=== PATIENT | female | born 1960 | race Caucasian/White ===

== ENCOUNTER 2021-01-19 13:52 | Outpatient (CLI) | payer OTHER, SELFPAY ==
--- NOTE | 2021-01-19 14:47 | ECG_ITS ---
Measurements Intervals Bell Rate: 73 P: 56 HI: 153 QRS: 30 QRSD: 105 T: 30 QT: 361 QTc: 400 Interpretive Statements SINUS RHYTHM MINIMAL Q WAVES- HIGH LATERAL LEADS BASELINE ARTIFACT- I, II, III, AVR, AVL BORDERLINE ECG Electronically Signed On 01-19-2021 15:14:07 CDT by Chapincito Mclaughlin D.O.
[2021-01-19 15:27] LABS: Basophils Absolute Auto 0.1 K/mm3 (0.0-0.1); Basophils Percent Auto 1.1 % (0.2-1.2); Eosinophils Absolute Auto 0.6 K/mm3 (0-0.3); Eosinophils Percent Auto 10.7 % (0-4.4); Hematocrit 38.5 % (37.0-47.0); Hemoglobin 12.3 g/dL (12.0-15.0); Immature Granulocyte Absolute 0.01 K/mm3 (0.00-0.031); Immature Granulocyte Percent A 0.2 % (0-0.5); Lymphocytes Absolute Auto 1.73 K/mm3 (0.9-3.2); Lymphocytes Percent Auto 30.8 % (18.3-44.2); Mean Corpuscular HGB Conc 31.9 g/dl (32-36); Mean Corpuscular Hemoglobin 29.8 pg (26-34); Mean Corpuscular Volume 93.2 fl (80-100); Mean Platelet Volume 9.4 fl (7.4-10.4); Monocytes Absolute Auto 0.5 K/mm3 (0.1-0.6); Monocytes Percent Auto 8.5 % (2.6-8.5); Neutrophils Absolute Auto 2.7 K/mm3 (1.3-6.7); Neutrophils Percent Auto 48.7 % (45.5-73.1); Platelet Count Result 322 k/mm3 (150-375); Red Blood Count 4.13 M/mm3 (4.2-5.4); Red Cell Distribution Width 13.3 % (11.5-14.5); White Blood Count 5.6 K/mm3 (4.5-10.0)
[2021-01-19 15:36] LABS: INR 0.8; Prothrombin Time 11.1 Seconds (11.1-14.7)
[2021-01-19 15:37] LABS: Partial Thromboplastin Time 27.9 SECONDS (22.3-36.8)
[2021-01-19 15:42] LABS: Alanine Aminotransferase 26 U/L (4-35); Albumin Level 4.2 g/dL (3.5-5.1); Alkaline Phosphatase 102 U/L (38-126); Anion Gap 9 mmol/L (8-16); Aspartate Amino Transferase 36 U/L (14-36); Bilirubin,Total 0.5 mg/dL (0.2-1.3); Blood Urea Nitrogen 18 mg/dL (7-17); Calcium 9.8 mg/dL (8.4-10.2); Carbon Dioxide 28 mmol/L (22-30); Chloride 100 mmol/L (98-107); Estimated Glomerular Filt Rate > 60; Glucose 92 mg/dL (65-110); Potassium 3.7 mmol/L (3.4-5.0); Sodium 137 mmol/L (137-145)
== END 2021-01-19 13:53 | disposition home or self-care (01) ==
LOC: ANHSURGERY 13:59
PROVIDERS: PCP Family Medicine; Visit Provider Urology
DX: N81.4 Uterovaginal prolapse, unspecified (principal); Z01.818 Encounter for other preprocedural examination
CPT/HCPCS: 36415; 80053; 85025; 85610; 85730; 86850; 86900; 86901; 87086; 93005

== ENCOUNTER 2021-01-30 00:54 | Day surgery (SDC) | payer OTHER, SELFPAY ==
[2021-01-19 14:05] VITALS: BMI 38.0
[2021-01-19 14:28] VITALS: BP 124/74; PULSE 81; RESP 16; TEMP 37.2; O2SAT 97
--- NOTE | 2021-01-28 07:57 | PM.IMHP ---
H&P: HPI History of Present Illness Date/Time: 01/28/21 07:57 61-year-old 3 para 3 admitted for robotic supracervical hysterectomy and bilateral salpingo-oophorectomy secondary to pelvic prolapse. She notes a complete prolapse of her pelvis. Risks and benefits reviewed including but not exclusive of , aspiration pneumonia, bleeding, transfusion, perforation injury to bowel, bladder, ureters, or other internal organs with need for open laparotomy. She received the [employer] handout entitled hysterectomy as well as the de Nathaniel handout. She had all questions answered and asked to proceed Chief Complaint: uterine prolapse Review of Systems Review of Systems: All systems reviewed & are unremarkable except as noted in HPI and below PMFSH Social History Social History Smoking packs per day: 1 Smoking cigarettes per day: 20.0 Years smoked: 4 Smoking pack-years: 4.00 Smoking status: Former smoker Tobacco type: cigarettes Smoking end date: 07/01/77 Spiritual care concerns: No Meds Home Medications and Allergies Home Medications Medication Instructions Recorded Confirmed Type cetirizine 10 mg PO DAILY 01/19/21 01/19/21 History lansoprazole 15 mg PO DAILY 01/19/21 01/19/21 History multivit with min-folic acid 2 tablet PO DAILY 01/19/21 01/19/21 History [Adult Multivitamin Gummies] nitrofurantoin monohyd/m-cryst 100 mg PO BID 01/19/21 01/19/21 History Allergies Allergy/AdvReac Type Severity Reaction Status Date / Time Penicillins AdvReac Rash Verified 01/19/21 14:07 Sulfa (Sulfonamide AdvReac Rash Verified 01/19/21 14:06 Antibiotics) Exam Const: General: no acute distress Eyes: General: appearance normal, both eyes and all related structures Neck: Neck: supple and no JVD Thyroid: thyroid normal Resp: Effort & Inspection: normal respiratory effort Auscultation: clear to auscultation bilaterally Cardio: Rate: regular rate Rhythm: regular rhythm GI: Inspection: non-distended GI Palp: Yes Soft to palpation, No Tenderness to palpation present (GI) and No Guarding due to palpation present (GI) Auscultation: normal bowel sounds : External Female Exam: normal external appearance ( Complete prolapse noted.) and Abnormal introitus Bimanual exam- vagina & uterus: uterine size normal Bimanual Exam- Adnexa, other: normal adnexae Skin: General skin exam: no rashes or lesions noted Extrem: General: normal to inspection and no edema Psych: Mental Status: mental status grossly normal Affect: normal affect Assessment and Plan Additional Plan impression: Pelvic prolapse Plan: Robotic supracervical hysterectomy and bilateral salpingo-oophorectomy
[2021-01-30] VITALS (7 sets, daily range): BP systolic 113–121; BP diastolic 65–79; PULSE 55–82; RESP 12–18; TEMP 35.7–37.3; O2SAT 99–100
--- NOTE | 2021-01-30 07:01 | WPDHPUPDATE1 ---
History and Physical Update Update Date/Time: 01/30/21 07:01 History and Physical has been reviewed, including an updated exam of the patient. There are NO changes in the patient's condition. Risks, benefits, and alternatives have been discussed and questions answered. Patient agrees to proceed with procedure.
--- NOTE | 2021-01-30 09:32 | WPDANESEPPF ---
Anes - Initial Pre Proc Eval Procedure: Operation Date: 01/30/21 11:30 Proposed Procedures p Robotic Sacrocolpopexy - Karthikeyan Dow MD s Trans Obturator Taping Urethral Sling - Karthikeyan Dow MD s Robotic Assisted Supracervical Hysterectomy With Bilateral Salpingo-Oophorectomy - Onel Dickerson MD Date/Time: 01/30/21 09:32 Surgeon: Karthikeyan Dow MD Pre Op Diagnosis: uterovaginal prolapse Patient Data Age: 61 Gender: F Height: 1.63 m Weight: 100.4 kg Last Vital Signs Temp 37.2 C 01/19/21 14:28 Pulse 81 01/19/21 14:28 Resp 16 01/19/21 14:28 BP 124/74 01/19/21 14:28 Pulse Ox 97 01/19/21 14:28 Allergies Allergy/AdvReac Type Severity Reaction Status Date / Time Penicillins Allergy Rash Verified 01/30/21 08:30 Sulfa (Sulfonamide Allergy Rash Verified 01/30/21 08:30 Antibiotics) Home Medications Medication Instructions Recorded Confirmed Type cetirizine 10 mg PO DAILY 01/19/21 01/19/21 History lansoprazole 15 mg PO DAILY 01/19/21 01/19/21 History multivit with min-folic acid 2 tablet PO DAILY 01/19/21 01/19/21 History [Adult Multivitamin Gummies] nitrofurantoin monohyd/m-cryst 100 mg PO BID 01/19/21 01/19/21 History Patient hx anesthesia problems: none Family hx anesthesia problems: none [facility] Past Medical History Medical History (Updated 01/30/21 @ 09:33 by Alvaro Giles MD) Chronic GERD Obesity Social History Social History Smoking packs per day: 1 Smoking cigarettes per day: 20.0 Years smoked: 4 Smoking pack-years: 4.00 Smoking status: Former smoker Tobacco type: cigarettes Smoking end date: 07/01/77 Living arrangements: with family Spiritual care concerns: No Anes - Eval Final PreProcedure Day of Procedure 01/30/21 09:32 Patient weight: obese Heart: regular rate and rhythm Lungs: clear to auscultation and normal air movement Airway: Mallampati scale class II Neurological: alert and oriented Last oral intake: >/= 8 hours ASA classification: II Emergent: no Anesthetic plan: proceed Anesthesia type and monitoring: general ETT Informed Consent: The patient's anesthetic plan and its attendant risks and benefits were discussed with the patient/family/POA. Questions were solicited and answers provided to the satisfaction of the patient/family/POA.
[2021-01-30] MEDS: LACTATED RINGERS 1,000 ML 30 ML IV CONT ×2 (10:00→15:04)
[2021-01-30] MEDS: KETOROLAC 15 MG/ML VIAL (*BKC) IV PUSH ×2 (10:06→21:15)
[2021-01-30] MEDS: ACETAMINOPHEN 500 MG TABLET 1000 MG PO (10:07)
--- NOTE | 2021-01-30 10:26 | PM.IMHP ---
H&P: HPI History of Present Illness Date/Time: 01/30/21 10:26 This is a 61-year-old female with stage IV uterine prolapse. She has no stress incontinence by history or by urodynamics. Chief Complaint: Uterine prolapse Review of Systems Review of Systems: All systems reviewed & are unremarkable except as noted in HPI and below PMFSH Past Medical History Medical History Chronic GERD Obesity Social History Social History Smoking packs per day: 1 Smoking cigarettes per day: 20.0 Years smoked: 4 Smoking pack-years: 4.00 Smoking status: Former smoker Tobacco type: cigarettes Smoking end date: 07/01/77 Living arrangements: with family Spiritual care concerns: No Meds Home Medications and Allergies Home Medications Medication Instructions Recorded Confirmed Type cetirizine 10 mg PO DAILY 01/19/21 01/19/21 History lansoprazole 15 mg PO DAILY 01/19/21 01/19/21 History multivit with min-folic acid 2 tablet PO DAILY 01/19/21 01/19/21 History [Adult Multivitamin Gummies] nitrofurantoin monohyd/m-cryst 100 mg PO BID 01/19/21 01/19/21 History Allergies Allergy/AdvReac Type Severity Reaction Status Date / Time Penicillins Allergy Rash Verified 01/30/21 08:30 Sulfa (Sulfonamide Allergy Rash Verified 01/30/21 08:30 Antibiotics) Exam Const: General: cooperative, healthy appearing and alert HENMT: Head: normal to inspection Eyes: General: appearance normal, both eyes and all related structures Resp: Effort & Inspection: normal respiratory effort, able to speak in complete sentences and no cough GI: Inspection: normal to inspection : External Female Exam: Abnormal introitus Bimanual Exam- Adnexa, other: No apex supported and vaginal apex descent ( Plus eight) Back/Spine/Pelvis: Back: no CVA tenderness Skin: General skin exam: normal color and no rashes or lesions noted Neuro: General: patient oriented x3 Assessment and Plan Assessment and plan (1) Uterine prolapse: Code(s): N81.4 - Uterovaginal prolapse, unspecified Status: Acute Assessment and Plan: robotic sacral colpopexy. She understands her prolapse is quite significant. I can only elevate the apex to the sacral promontory. She may have residual prolapse. She has no stress incontinence by history or no urodynamics. We discussed doing a concomitant sling for possible occult stress incontinence. She declines. (2) Female perineal laxity: Code(s): N81.89 - Other female genital prolapse Status: Acute Assessment and Plan: perineal repair
--- NOTE | 2021-01-30 10:29 | WPDHPUPDATE1 ---
History and Physical Update Update Date/Time: 01/30/21 10:29 History and Physical has been reviewed, including an updated exam of the patient. There are NO changes in the patient's condition. Risks, benefits, and alternatives have been discussed and questions answered. Patient agrees to proceed with procedure.
[2021-01-30] MEDS: ceFAZolin 2 GM/D5W 50 ML 2 GM/50 ML BAG IVPB (11:05)
[2021-01-30] MEDS: BUPIVACAINE/EPINEPHRINE 0.25% 10 ML VIAL 20 ML INFILTRATE (11:36)
--- NOTE | 2021-01-30 12:22 | P.OP_ITS ---
Procedure Note - Detailed Date of Procedure 01/30/21 Pre-op Diagnosis uterovaginal prolapse Post-op Diagnosis same Procedure Performed Robotic supracervical hysterectomy bilateral salpingo-oophorectomy Surgeon Onel Dickerson MD Anesthesia general Indications this is a patient with a complete uterine prolapse Findings complete uterine prolapse Description of Procedure the patient was prepped draped in the normal sterile fashion placed in the dorsal lithotomy position. Under excellent general endotracheal anesthesia weighted speculum was placed in posterior fornix vagina the complete prolapse was seen and the uterus was grasped with at the cervix with a single-tooth tenaculum and a Carmen's cannula inserted in the uterus pushed back into the vagina. A [address] [place] catheter was placed[address] Dow proceeded to dock the robot. Please see his operative report for full details The left round ligament was then grasped, burned, cut. Anteriorly a bladder flap was formed by sharply dissecting across the peritoneum and dissect cutting the bladder and pushing it caudally to the opposite round ligament was clamped, burned, cut. Orientation was difficult due to the complete nature of the prolapse. The left infundibulopelvic structure was skeletonized to remove the left ovary and tube. This was clamped, burned, cut and brought to the level of the previously cut round ligament. In like fashion removing the right ovary and tube the infundibulopelvic structure was skeletonized, clamped, burned, cut. This was brought to the level of previously cut round ligament remnant. Next the cardinal broad ligaments on the left were serially skeletonized clamped burned and cut down the lateral edge of the uterus and to the uterine vessels could be seen on left. These were individually clamped, burned, cut. In like fashion the cardinal and broad ligaments were skeletonized on the right these were clamped, burned, cut and brought down to the level of vessels on the right. These vessels were individually clamped, burned, cut. A supracervical his incision was made. And the uterus up placed in an Endo-Catch. A small vaginal laceration was seen and this was made known to Dr. Dow 2 stated he would repair that during the was stable sacral colpopexy. Blood loss to this point was 5cc. All sponge, needle, instruments correct. Dr. Dow proceeded with the sacral colpopexy from that point Estimated Blood Loss 5 Drains No Packing No Pathology yes Complications No immediate complications Condition stable Disposition no change
[2021-01-30] MEDS: metroNIDAZOLE 500 MG/ISO 100ML 500 MG/100 ML BAG 100 MG IVPB ×2 (12:48→21:15)
--- NOTE | 2021-01-30 15:03 | W.PM.PROC2 ---
Procedure Note - Detailed Date of Procedure 01/30/21 Pre-op Diagnosis uterovaginal prolapse Post-op Diagnosis same Procedure Performed robotic assisted laparoscopic sacral colpopexy perineal repair /perineoplasty cystoscopy Surgeon Karthikeyan Dow MD Anesthesia general Indications this is a woman with uterine prolapse and female perineal laxity. They present for surgery. They understand risks of bleeding, infection, damage to surrounding organs, damage to the bowel or urinary tract, diskitis, recurrence of prolapse, recurrent or persistent stress incontinence, vaginal or urinary tract mesh exposure, obstructive voiding requiring secondary procedure, hip and leg pain, dyspareunia, and other perioperative intraoperative and postoperative complications. They agreed to proceed. There is no stress incontinence by history or by urodynamic testing. However due to the large size the prolapse I did offer a prophylactic sling in the case of de Eyal stress incontinence. She declines. She also understands that she has a quite a large prolapse and she is at risk for failure residual prolapse. Again, she agrees to proceed. Findings See dictation Description of Procedure She was correctly identified. Informed consent is obtained. She was brought to the operating room. She was given general anesthesia. She was placed in the dorsal lithotomy position. All pressure points were padded. She was given appropriate perioperative antibiotics. A time-out was performed. I anesthetized the skin 3 fingerbreadths cephalad to the umbilicus. I incised the skin. I grasped the fascia with Oscar clamps. I entered the fascia sharply in a Hason type technique. I placed Vicryl sutures for later fascial closure. the midline trocar was placed. Under direct vision 2 additional trocars were placed in the right and left upper quadrant. She was placed in steep Trendelenburg. The robot was docked. I turned her over to her colorist dyer for their portion of the procedure. That will be dictated in a separate op note. I then sat at the console. With a Sizer in the vagina I created a plane on the anterior and posterior vaginal wall for several cm taking great care not to injure the vagina bladder or rectum. I introduced the mesh into the abdomen. I sewed the anterior leaf of the mesh on the anterior vaginal wall and the posterior leaflet of mesh on the posterior vaginal wall with multiple sutures of 2 0 [place] taking great care not to go through and through. I used a 12-14 sutures on the top side and 12 14 sutures on the bottom side.I reflected the colon laterally. I opened up the posterior peritoneum over the sacral promontory and carried this incision into the cul-de-sac. I freed up the edges for later retroperitonealization of the mesh. I located the anterior longitudinal ligament of the sacrum. It was cleaned off of all fatty tissues. I tensioned my mesh appropriately. I went to the bedside to perform a vaginal exam. There was good apical support without undue tension. I then sewed the proximal leaflet of mesh onto the anterior longitudinal ligament with 4 sutures of 2 0 [place]. I then used a 2 0 Monocryl to meticulously retroperitonealized all mesh. I allowed the colon to go back into its normal anatomic location. There is no signs of any impingement. The specimen was extracted. The abdomen was exited. Fascial sutures were closed. Wounds were irrigated. Skin was closed with Monocryl as well as surgical glue. She was then repositioned and prepped for perineal surgery. I anesthetized the trey-shaped area of skin on the perineum. I removed this area of skin. I performed a classic perineal repair with 0 Vicryl suture. I used a 2 0 Vicryl to close the mucosa. There was excellent perineal support without undue narrowing of the vagina. I then performed cystoscopy. The bladder was examined. There is no surgical artifact or tumors with
--- NOTE | 2021-01-30 15:31 | SUR.PHASEI ---
Simple mask removed at 1530.
[2021-01-30] MEDS: KCL 20 MEQ/D5/0.45% SOD CHL 1,000 ML 100 ML IV CONT (16:39)
--- NOTE | 2021-01-30 17:32 | PC.NURSE ---
This patient, Татьяна Head, was received from PACU on 01/30/21 at 1612. Patient/family oriented to unit policies and routines
[2021-01-30] MEDS: SIMETHICONE 80 MG TAB.CHEW (21:15)
[2021-01-30] MEDS: HYDROcodone/acetaminophen (*CRX) 5-325 MG TABLET 1 TAB PO (21:15)
[2021-01-31 05:15] VITALS: BP 113/71; PULSE 78; RESP 16; TEMP 36.6
[2021-01-31] MEDS: metroNIDAZOLE 500 MG/ISO 100ML 500 MG/100 ML BAG 100 MG IVPB (05:15)
[2021-01-31] MEDS: DOCUSATE SODIUM 100 MG CAPSULE PO (07:03)
[2021-01-31] MEDS: HYDROcodone/acetaminophen (*CRX) 5-325 MG TABLET 1 TAB PO (07:04)
[2021-01-31] MEDS: PANTOPRAZOLE 40 MG TABLET PO (07:04)
[2021-01-31] MEDS: ENOXAPARIN 30 MG/0.3 ML SYRINGE SUB-Q (07:05)
--- NOTE | 2021-01-31 07:07 | PM.DS ---
DS: Admitting Diagnosis Admitting Diagnosis pelvic laxity DS: Summary Hospital Course Hospital Course: the patient was admitted for supracervical hysterectomy bilateral salpingo-oophorectomy, sacral colpopexy and repair of perineum. Her procedure was unremarkable on 01/30/2021. Please see the operative report for full details. Her hospital course was unremarkable. She was up, voiding without difficulty, ambulating, and generally without complaints. Routine discharge instructions were given Time Spent with Patient Time attestation: Total time spent providing and/or coordinating discharge services: Exam Const: General: no acute distress Eyes: General: appearance normal, both eyes and all related structures Neck: Neck: supple and no JVD Thyroid: thyroid normal Resp: Effort & Inspection: normal respiratory effort Auscultation: clear to auscultation bilaterally Cardio: Rate: regular rate Rhythm: regular rhythm GI: Inspection: non-distended GI Palp: Yes Soft to palpation, No Tenderness to palpation present (GI) and No Guarding due to palpation present (GI) Auscultation: normal bowel sounds : General: Yes bladder normal to palpation External Female Exam: normal external appearance Speculum Exam - Vagina: normal vaginal discharge and No vaginal bleeding Speculum Exam - Cervix: nontender Bimanual exam- vagina & uterus: bladder normal to palpation and No Cervical tenderness present OB/external & speculum: No vaginal bleeding Skin: General skin exam: no rashes or lesions noted Extrem: General: normal to inspection and no edema Psych: Mental Status: mental status grossly normal Affect: normal affect DS: Data Data Completed and Pending Pending studies at discharge: Pending at discharge 01/30/21 12:49 Surgical [PTH] Routine Discharge Plan Discharge Patient Disposition: Home, Self-Care Discharge Instructions: No lifting >20lb, exercise for 6 weeks No tub bath or pool for 2 weeks no intercourse for 6 weeks Stand Alone Forms: General Discharge Instructions Follow-up/Referrals: Karthikeyan Dow MD [Physician] - ( 6 weeks) Discharge Medications: New docusate sodium [Colace] 100 mg capsule 100 mg PO BID Qty: 60 RF: 0 hydrocodone-acetaminophen 5-325 mg tablet 1 tablet PO Q4H PRN (Reason: pain) Qty: 30 RF: 0 Continued Adult Multivitamin Gummies 200 mcg Tablet,Chewable 2 tablet PO DAILY RF: 0 cetirizine 10 mg Capsule 10 mg PO DAILY RF: 0 lansoprazole 15 mg Capsule,Delayed Release(Dr/Ec) 15 mg PO DAILY RF: 0
--- NOTE | 2021-01-31 07:09 | PM.GYNPNOP ---
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:Subj Post-Op Subjective Date/time seen: 01/31/21 07:09 Subjective: patient reports feeling better and patient has no complaints Review of Systems Review of Systems: All systems reviewed & are unremarkable except as noted in HPI and below Exam Const: General: no acute distress Eyes: General: appearance normal, both eyes and all related structures Neck: Neck: supple and no JVD Thyroid: thyroid normal Resp: Effort & Inspection: normal respiratory effort Auscultation: clear to auscultation bilaterally Cardio: Rate: regular rate Rhythm: regular rhythm GI: Inspection: non-distended GI Palp: Yes Soft to palpation, No Tenderness to palpation present (GI) and No Guarding due to palpation present (GI) Auscultation: normal bowel sounds : General: Yes bladder normal to palpation External Female Exam: normal external appearance Speculum Exam - Vagina: normal vaginal discharge and No vaginal bleeding Speculum Exam - Cervix: nontender Bimanual exam- vagina & uterus: bladder normal to palpation and No Cervical tenderness present OB/external & speculum: No vaginal bleeding Skin: General skin exam: no rashes or lesions noted Extrem: General: normal to inspection and no edema Psych: Mental Status: mental status grossly normal Affect: normal affect 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 - PN: Obj Data Vital Signs Vital Signs: Vital Signs - 24 hr 01/30/21 09:44 01/30/21 15:04 01/30/21 15:20 Temperature 99.2 F 96.9 F L Pulse Rate 81 69 65 Respiratory Rate 18 12 12 Blood Pressure 121/75 116/79 117/73 Pulse Oximetry 99 100 100 01/30/21 15:35 01/30/21 15:50 01/30/21 16:15 Temperature 96.3 F L Pulse Rate 60 63 55 L Respiratory Rate 12 18 16 Blood Pressure 121/74 119/72 113/70 Pulse Oximetry 100 99 100 01/30/21 21:04 01/31/21 05:15 Temperature 97.6 F 97.8 F Pulse Rate 82 78 Respiratory Rate 16 16 Blood Pressure 118/65 113/71 Pulse Oximetry Intake/Output Intake/Output: Intake & Output 01/28/21 01/29/21 01/30/21 01/31/21 23:59 23:59 23:59 23:59 Intake Total 400 1000 Output Total 110 1600 Balance 290 -600 Meds/Results Medications: Active Medications Generic Name Dose Route Start Last Admin Trade Name Freq PRN Reason Stop Dose Admin Acetaminophen 650 mg 01/30/21 16:04 Acetaminophen 325 Mg Tablet PO Q4H PRN Mild Pain (1-3) or Fever Hydrocodone Bitart/Acetaminophen 1 tab 01/30/21 16:04 01/31/21 07:04 Hydrocodone/Acetaminophen (*Crx) 5-325 Mg Tablet PO 1 tab Q4H PRN Administration Pain Rated 4-5 Diphenhydramine HCl 25 mg 01/30/21 16:04 Diphenhydramine Hcl Inj 50 Mg/Ml Vial IV PUSH Q6H PRN Itching Docusate Sodium 100 mg 01/31/21 09:00 01/31/21 07:03 Docusate Sodium 100 Mg Capsule PO 100 mg DAILY DENNIS Administration Enoxaparin Sodium 30 mg 01/31/21 09:00 01/31/21 07:05 Enoxaparin 30 Mg/0.3 Ml Syringe SUB-Q 30 mg DAILY DENNIS Administration Metronidazole 500 mg in 100 mls @ 100 mls/hr 01/30/21 21:00 01/31/21 05:15 Flagyl 500 Mg/Iso Soln 100 Ml IVPB 100 mls/hr Q8H DENNIS Administration Ketorolac Tromethamine 15 mg 01/30/21 16:04 01/30/21 21:15 Ketorolac 15 Mg/Ml Vial (*Bkc) IV PUSH 01/31/21 16:05 15 mg Q8H PRN Administration Pain Rated 5 or Less Levofloxacin 500 mg 01/31/21 09:00 Levofloxacin 500 Mg Tablet PO QAM DENNIS Loratadine 10
--- NOTE | 2021-01-31 07:12 | WPDANESPN ---
Anes - Prog Note Post-Op Date/Time: 01/31/21 07:12 Cardiovascular status: normal Respiratory status: normal Airway patency: baseline Mental status: baseline Post-Op hydration status: normal Vital Signs: Last Vital Signs Temp 36.6 C 01/31/21 05:15 Pulse 78 01/31/21 05:15 Resp 16 01/31/21 05:15 BP 113/71 01/31/21 05:15 Pulse Ox 100 01/30/21 16:15 Pain Score (VAS): 07/10 I/O: Intake & Output 01/30/21 01/30/21 01/31/21 15:59 23:59 07:59 Intake Total 739 592 8324 Output Total 35 75 1600 Balance 265 25 -600 Post-procedural complaints: none Patient Feedback: Patient satisfied with anesthetic care.
[2021-01-31 08:09] LABS: Estimated CRCL calculation 81 ml/min; Estimated Glomerular Filt Rate > 60
[2021-01-31 08:25] VITALS: BP 105/63; PULSE 75; RESP 16; TEMP 37.1; O2SAT 98
[2021-01-31] MEDS: levoFLOXacin 500 MG TABLET PO (09:08)
[2021-01-31] MEDS: LORATADINE 10 MG TABLET PO (09:09)
== END 2021-01-31 14:35 | disposition home or self-care (01) ==
LOC: ANHSURGERY 15:10 → ANHOB2 16:06
PROVIDERS: Obstetrics & Gynecology; PCP Family Medicine; Visit Provider Urology
PROC: (CPT 57425; principal; 2021-01-30 11:30)
PROC: 0UT94ZZ Resection of Uterus, Percutaneous Endoscopic Approach (ICD-10-PCS; CPT 57425; 2021-01-30 11:30)
DX: N81.3 Complete uterovaginal prolapse (principal); K21.9 Gastro-esophageal reflux disease without esophagitis; Z87.891 Personal history of nicotine dependence; E66.9 Obesity, unspecified; Z68.37 Body mass index [BMI] 37.0-37.9, adult
CPT/HCPCS: 58542; 57425; S2900 ×2; 36415; 80053; 82565; 85025; 85610; 85730; 86850; 86900; 86901; 87086; 88307; 93005; 99199; A9270; C1781; C9290; J0690; J1100; J1170; J1650; J1885; J2250; J2370; J2405; J2704; J2710; J3010; J3480; J7030; J7120